=== PATIENT | female | born 1930 | race Caucasian/White ===

== ENCOUNTER 2017-02-15 16:28 | Inpatient (IN) | payer MEDICARE, OTHER ==
[~2017-02-15] VITALS: Ht 142.2 cm; Wt 52.9 kg
[~2017-02-15 16:28] MED LIST: ALPHAGAN-P5 ML OU; AZATHIOPRINE50 MG PO; DELTASONE DPS10 MG PO; DELZICOL400 MG PO; GENTEAL GEL DRO15 ML OU; GLUCOTROL DPS5 MG PO; MESTINON DPS60 MG PO; NORCO 5-325 TA1 EACH PO; PROTONIX40 MG PO; TYLENOL DP650 MG/20. PO; VITAMIN D35000 UNI1 PO; XALATAN2.5 ML OU
--- NOTE | 2017-02-16 16:55 | HP ---
ADMIT: 02/15/2017 RM/LOC: [facility] MR#: [id number] [address] [address] [place] [address] History and Physical SEX: F AGE: 86 : 1930 DATE OF SERVICE: CHIEF COMPLAINT: Weakness and cough. HISTORY OF PRESENT ILLNESS: The patient is a very pleasant 86-year-old female, who resides over at assisted living facility, sees me in clinic. I saw her last week and she had reported just kind of some generalized increased weakness, that was her myasthenia and we increased her Mestinon as well as her prednisone. She had a fall recently and a skin tear, was on Keflex. She, however, over the last 4 to 5 days, has developed a cough she states, mildly productive. Reports she does occasionally cough on food when eating. This has been going on for quite some time. Reports some mild subjective fevers feeling, no rigors, some nausea, some confusion earlier today, couple bouts of diarrhea. Otherwise, no abdominal pain, some generalized weakness, some confusion as well. PAST MEDICAL HISTORY: 1. History of Crohn's colitis. 2. Well-controlled type 2 diabetes, on oral agents. 3. Irritable bowel syndrome. 4. History of right hip fracture. 5. Myasthenia gravis with history of thymoma. 6. History of tracheostomy and respiratory failure secondary to her myasthenia with myasthenia crisis years ago. 7. Osteoarthritis. 8. 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 MEDICATIONS: She is on: 1. Alprazolam. 2. Azathioprine. 3. Keflex. 4. Delzicol. 5. Glipizide. 6. Guaifenesin/codeine. 7. Pantoprazole. 8. MiraLax. 9. Prednisone. 10.Mestinon. 11.Sertraline. 12.Tramadol. 13.Valacyclovir p.r.n. Please see list for full details. ALLERGIES: LEVAQUIN. PAST SURGICAL HISTORY: She has had bilateral mastectomy, tracheostomy, and hip fracture. FAMILY HISTORY: Significant for mother with cancer, pancreatic. Father with ADMIT: 02/15/2017 RM/LOC: [facility] MR#: [id number] [address] [address] [place] [address] History and Physical SEX: F AGE: 86 : 1930 lung cancer. She is a longtime former smoker many, many years ago. SOCIAL HISTORY: Lives with her at assisted living. Family, daughter very involved in her care usually. REVIEW OF SYSTEMS: As per HPI. Otherwise, completely reviewed and negative. PHYSICAL EXAMINATION: VITAL SIGNS: Temp 98.9, pulse 86, respiratory rate 18, blood pressure 142/58, O2 saturation 94% on room air. GENERAL: She is alert and oriented x3, in no acute distress, pleasant as always. HEENT: Normocephalic, atraumatic. Pupils reactive on the left. Chronic eye prosthesis on the right. No icterus on the left. Dry mucous membranes. NECK: Soft and supple. Trachea midline. LUNGS: She has rales in posterior base on the right side. Otherwise, clear on the left. Symmetric thoracic excursion. HEART: Regular rate and rhythm. No murmurs, rubs, or gallops. ABDOMEN: Soft, nontender, nondistended. Bowel sounds present. EXTREMITIES: No cyanosis, clubbing, or edema. MUSCULOSKELETAL: 5/5 strength in all 4 extremities. NEUROLOGICAL: No focal deficits noted. Cranial nerves II through XII grossly intact other than her eye deficits on the right. SKIN: She has a skin tear roughly 6 cm on her left lateral leg dried up. No secondary infection at this time. Otherwise, very dry with multiple ecchymoses throughout. LABORATORY AND X-RAY DATA: Her creatinine is 0.9, AST and ALT within normal limits, bilirubin is 1.0, phos is normal. White count 15.1; hemoglobin 12.8; platelets 160; lactic acid is 2.2, repeat now is 1.7. UA is overall negative. Procalcitonin is 0.5. Blood cultures drawn and pending. Chest x-ray, I reviewed. I did see a large right-sided infiltrate. EKG is reviewed, nonspecific T-wave changes, overall sinus rhythm and without acute findings. ASSESSMENT: 1. Pneumonia with questionable aspiration. 2. Myasthenia gravis. ADMIT: 02/15/2017 RM/LOC: [facility] MR#: [id number] [address] [address] [place] [address] History and Physical SEX: F AGE: 86 : 1930 3. History of chronic colitis, Crohn's. 4. Anxiety. 5. Diabetes, type 2. 6. Chronic immunosuppression. PLAN: At this point in time, we will give her antibiotics, watch her closely, repeat a chest x-ray in the morning, have Speech Therapy evaluate her for some aspiration. We will give her steroids, hydrocortisone stress dosed due to her chronic steroid use. Blood pressure otherwise okay right now. We will put her on Rocephin and azithromycin. Get a sputum culture if we can, tailor antibiotics if possible, watch her very closely due to her myasthenia gravis with history of crisis. The patient is agreeable to plan. Joseph Rose MD/ ankit JOB #: [id number] CC: Joseph Rose, Attending Physician Joseph Rose, Family Physician
--- NOTE | 2017-02-20 19:37 | DS ---
ADMIT: 02/15/2017 RM/LOC: [facility] MR#: [id number] [address] [address] [place] [address] Discharge Summary SEX: F AGE: 86 : 1930 ADMISSION DATE: 02/15/2017 DISCHARGE DATE: 02/19/2017 DISCHARGE DIAGNOSES: 1. Pneumonia. 2. Aspiration. 3. Diabetes mellitus, type 2. 4. History of Crohn's disease. 5. History of myasthenia gravis. 6. History of enucleation of the right eyeball. 7. History of right hip fracture. 8. History of irritable bowel. 9. Osteoarthritis. HOSPITAL COURSE: The patient was admitted. She was given IV steroids and IV antibiotics. She was seen by Speech Therapy. It was felt that she was having some aspiration. Overall, the patient was doing much better. She is afebrile and off oxygen. The plan was due to her weakness for her to be discharged to [facility]. Meds: 1. Prednisone 15 mg p.o. q. day. 2. Benzocol 400 mg p.o. b.i.d. 3. Mestinon 60 mg p.o. b.i.d. 4. MiraLAX 17 g p.o. q. day. 5. Protonix 40 mg p.o. q. day. 6. Zoloft 25 mg p.o. q. day. 7. Xalatan drops. 8. Zithromax 250 p.o. q. day x6. 9. Ceftin 250 p.o. b.i.d. x6. 10.Xanax 0.25 p.o. q. day. 11.Glipizide 10 mg p.o. q. day. 12.Vitamin D 5000 units daily. 13.Some p.r.n.s. Otherwise, she is to follow up with Dr. Rose in 7-10 days. PT, OT, and Speech Therapy to follow. Modified diet as per Speech recommendation. Nikki Paulino MD/ njv JOB #: [id number] CC: Joseph Rose MD, Attending Physician Joseph Rose MD, Family Physician
--- NOTE | 2017-03-12 08:09 | ER ---
ADMIT: 02/15/2017 RM/LOC: [address] [facility] MR#: [id number] [address] [address] [place], [place] [address] Emergency Room Report SEX: F AGE: 86 : 1930 DATE: 02/15/2017 BRIEF ADDENDUM: Please see my T-sheet for complete review of systems, past medical history, and physical exam. CHIEF COMPLAINT: Vomiting, diarrhea, and weakness. HISTORY OF PRESENT ILLNESS: Pleasant 86-year-old, white female, who presents with a week's duration of vomiting and diarrhea. States she has progressively felt more weak. Does have past medical history for myasthenia gravis. States she has been hospitalized for pneumonia previously and had to be intubated secondary to her myasthenia and her inability to protect her airway. States she has some mild watery diarrhea, some diffuse crampy abdominal pain and productive cough. Has a history of type 2 diabetes, status post breast cancer. Has some underlying irritable bowel syndrome. She is currently being treated for a skin tear on her left lower leg since finishing round of Keflex. Currently, admits to productive cough getting worse. COURSE IN THE EMERGENCY ROOM: The patient was seen and examined. PHYSICAL EXAMINATION: GENERAL: She was afebrile, however, appeared quite uncomfortable. She was in no acute distress. HEENT: Pharynx nonerythematous. NECK: Soft and supple. No lymphadenopathy. LUNGS: She did have diffuse bilateral wheezes. HEART: Regular. No irregular rhythm or tachycardia. ABDOMEN: Soft, subjective tenderness diffusely throughout the abdomen. No guarding or rebound. BACK: Normal. No CVA tenderness. SKIN: Warm and dry. EXTREMITIES: No pedal edema. She does have a laceration to the left lower leg currently closed with Steri-Strip. It is warm, however, nonerythematous. No obvious drainage. NEUROLOGIC: She is profoundly weak. She is unable to keep her eyes open. They closed repeatedly throughout the duration of the physical exam. She is disoriented to time. Did get sepsis protocol on her. LABORATORY DATA: White count of 15.1, hemoglobin 12.8, hematocrit 38.6, and platelets 160. PT 11.4, INR 1.09, and PTT 24.3. Urine significant for glucose, no signs of acute infection. CMP shows sodium 142, potassium 4.4, carbon dioxide 31, BUN 21, glucose 215, serum creatinine 0.9, and phos 3.7. Liver enzymes are normal. Mag 2.2, procalcitonin 5.59, lactic acid 2.2. Blood cultures were pending. Cardiac enzymes were negative. I did get an x- ray of the chest showing cardiomegaly and right lower lobe infiltrate. EKG shows sinus rhythm with some ST depression in the precordial leads. She was given 500 mL normal saline bolus. She was given Zofran 4 mg IV. I did start her on antibiotics in the department prior to discharge to the floor. She was ADMIT: 02/15/2017 RM/LOC: [address] [facility] MR#: [id number] [address] [place] [id number] [place] [address] Emergency Room Report SEX: F AGE: 86 : 1930 given Rocephin. IMPRESSION: 1. Right lower lobe pneumonia. 2. Myasthenia gravis. 3. Type 2 diabetes. 4. Immunosuppression. 5. History of Crohn disease. DISPOSITION: I did phone Dr. Rose, made him aware of the patient. He will admit the patient to the floor for continued evaluation and management and IV antibiotic therapy. She was discharged to the floor in stable condition. ALEJANDRINA Thorpe / Otis Parker MD / ankit JOB #: [id number] CC: Joseph Rose MD, Attending Physician Joseph Rose MD, Family Physician
== END 2017-02-19 12:50 | DRG 178 ==
LOC: ER 16:28 → 4PCU 19:10
PROVIDERS: ADMIT Internal Medicine
DX: J69.0 Pneumonitis due to inhalation of food and vomit (principal); K50.90 Crohn's disease, unspecified, without complications; G70.00 Myasthenia gravis without (acute) exacerbation; E11.9 Type 2 diabetes mellitus without complications; M19.90 Unspecified osteoarthritis, unspecified site; S81.812D Laceration without foreign body, left lower leg, subsequent encounter; X58.XXXD Exposure to other specified factors, subsequent encounter; F41.9 Anxiety disorder, unspecified; Z90.01 Acquired absence of eye; Z79.52 Long term (current) use of systemic steroids; Z90.13 Acquired absence of bilateral breasts and nipples; Z87.891 Personal history of nicotine dependence; Z79.84 Long term (current) use of oral hypoglycemic drugs